=== PATIENT | female | born 1965 | race Caucasian/White ===

== ENCOUNTER 2016-03-11 11:18 | Emergency (ER) | payer SELFPAY ==
[2016-03-11] MEDS ORDERED: ASPIRIN 81 MG TABLET, CHEWABLE PO ONE (11:28)
--- NOTE | 2016-03-11 11:28 | ER Document Report ---
ED Medical Screen (RME) - General Stated Complaint: TIGHT CHEST,SHAKY,LIPS TINGLING Time seen by provider: 11:26 Mode of Arrival: Ambulatory Information source: Patient Notes: 50-year-old female presents to ED with heaviness to the chest radiating to the neck. States she was not feeling good at 9:00 this morning the heaviness started about 10:15 this morning. Patient has a history of high blood pressure and cholesterol. States she has a history of asthma bronchitis and pneumonia I have greeted and performed a rapid initial assessment of this patient. A comprehensive ED assessment and evaluation of the patient, analysis of test results and completion of medical decision making process will be conducted by an additional ED providers. TRAVEL OUTSIDE OF THE [place] IN LAST 30 DAYS: No - Related Data Allergies/Adverse Reactions: No Known Allergies Allergy (Verified 03/11/16 11:26) Past Medical History - Past Medical History Cardiac Medical History: Reports: Hx Hypercholesterolemia, Hx Hypertension Pulmonary Medical History: Reports: Hx Bronchitis Denies: Hx Tuberculosis Neurological Medical History: Reports: Hx Migraine - Gets migraine headache about every other week. Psychiatric Medical History: Reports: Hx Anxiety Past Surgical History: Reports: Hx Hysterectomy - partial hysterectomy, Hx Tonsillectomy - Immunizations Immunizations up to date: No Hx Diphtheria, Pertussis, Tetanus Vaccination: Yes
[2016-03-11 12:03] LABS: ABSOLUTE BASOPHILS # (AUTO) 0.1 10^3/uL (0.0-0.2); ABSOLUTE EOSINOPHILS # (AUTO) 0.1 10^3/uL (0.0-0.6); ABSOLUTE LYMPHOCYTES (AUTO) 2.1 10^3/uL (0.5-4.7); ABSOLUTE MONOCYTES (AUTO) 0.5 10^3/uL (0.1-1.4); BASOPHILS % (AUTO) 0.6 % (0-2); EOSINOPHILS % (AUTO) 1.1 % (0-6); HEMATOCRIT 40.3 % (36.0-47.0); HEMOGLOBIN 13.1 g/dL (12.0-15.5); LYMPHOCYTES % (AUTO) 23.9 % (13-45); MEAN CORPUSCULAR HGB CONC 32.5 g/dL (32.0-36.0); MEAN CORPUSCULAR VOLUME 102 fl (80-97); MONOCYTES % (AUTO) 5.7 % (3-13); RED BLOOD COUNT 3.97 10^6/uL (3.72-5.28); RED CELL DISTRIBUTION WIDTH 14.6 % (11.5-14.0); SEGMENTED NEUTROPHILS % (AUTO) 68.7 % (42-78); WHITE BLOOD COUNT 8.7 10^3/uL (4.0-10.5)
[2016-03-11 12:11] LABS: PROTHROMBIN TIME 11.2 SEC (11.4-15.4)
[2016-03-11 12:12] LABS: PARTIAL THROMBOPLASTIN TIME 28.6 SEC (23.5-35.8)
[2016-03-11 12:20] LABS: ALANINE AMINOTRANSFERASE 30 U/L (9-52); ALBUMIN 4.1 g/dL (3.5-5.0); ALKALINE PHOSPHATASE 70 U/L (38-126); ANION GAP 11 (5-19); ASPARTATE AMINO TRANSFERASE 27 U/L (14-36); BILIRUBIN,TOTAL 0.5 mg/dL (0.2-1.3); BLOOD UREA NITROGEN 14 mg/dL (7-20); CALCIUM 10.1 mg/dL (8.4-10.2); CARBON DIOXIDE 24 mmol/L (22-30); CHLORIDE 105 mmol/L (98-107); CREATINE KINASE 52 U/L (30-135); CREATININE RESULT 0.83 mg/dL (0.52-1.25); GLUCOSE 85 mg/dL (75-110); MAGNESIUM 1.9 mg/dL (1.6-2.3); POTASSIUM 5.2 mmol/L (3.6-5.0); SODIUM 140.4 mmol/L (137-145); TOTAL PROTEIN 7.4 g/dL (6.3-8.2)
[2016-03-11 12:45] LABS: CREATINE KINASE MB < 0.22 ng/mL (<4.55); TROPONIN I < 0.012 ng/mL
--- NOTE | 2016-03-11 12:47 | EKG REPORT ---
SEVERITY:- BORDERLINE ECG - SINUS RHYTHM BORDERLINE T ABNORMALITIES, ANT-LAT LEADS : Confirmed by: Jackeline Alfredo MD 11-Mar-2016 12:46:41
[2016-03-11] MEDS ORDERED: ONDANSETRON ODT 4 MG TAB (6 TAB/DSPK) PO PRN (14:52)
[2016-03-11] MEDS ORDERED: TRAMADOL HCL 50 MG TABLET PO ONE (14:52)
--- NOTE | 2016-03-11 15:22 | ER Document Report ---
ED General - General Time seen by provider: 14:45 Mode of Arrival: Ambulatory Information source: Patient TRAVEL OUTSIDE OF THE [place] IN LAST 30 DAYS: No - HPI Onset: Other - see HPI Associated symptoms: Nausea, Vomiting <SARAH CHUNG - Last Filed: 03/11/16 16:59> - General Mode of Arrival: Ambulatory TRAVEL OUTSIDE OF THE [place] IN LAST 30 DAYS: No <CESARMARKUS UNA - Last Filed: 03/11/16 21:38> - General Chief Complaint: Chest Tightness Stated Complaint: TIGHT CHEST,SHAKY,LIPS TINGLING Notes: Patient is a 50 year old female presenting to the emergency department complaining of hypertension, dizziness, and lack of appetite. Patient states that she has been out of her blood pressure medication for a few days since her got a new job with new insurance. Patient states she takes lisinopril. Patient states that she also has not been taking her Neurontin and that the last time she took it she vomited. Patient states that she has not been eating as much because she was feeling sick. Patient states she was not eating protein. Patient states that she also feels "out of it." Patient states she has a pinched when she swallows on her left side. Patient has no known allergies. (SARAH CHUNG) - Related Data Allergies/Adverse Reactions: No Known Allergies Allergy (Verified 03/11/16 11:26) Past Medical History - General Information source: Patient - Social History Smoking Status: Current Every Day Smoker Chew tobacco use (# tins/day): No Frequency of alcohol use: Occasional Drug Abuse: None Family History: Reviewed & Not Pertinent, CAD Patient has suicidal ideation: No Patient has homicidal ideation: No - Past Medical History Cardiac Medical History: Reports: Hx Hypercholesterolemia, Hx Hypertension - lisinopril Pulmonary Medical History: Reports: Hx Bronchitis Neurological Medical History: Reports: Hx Migraine Psychiatric Medical History: Reports: Hx Anxiety Past Surgical History: Reports: Hx Hysterectomy, Hx Tonsillectomy - Immunizations Immunizations up to date: No Hx Diphtheria, Pertussis, Tetanus Vaccination: Yes <SARAH CHUNG - Last Filed: 03/11/16 16:59> - General Information source: Patient - Social History Smoking Status: Current Every Day Smoker Chew tobacco use (# tins/day): No Frequency of alcohol use: Occasional Drug Abuse: None Family History: CAD Patient has suicidal ideation: No Patient has homicidal ideation: No - Past Medical History Cardiac Medical History: Reports: Hx Hypercholesterolemia, Hx Hypertension Pulmonary Medical History: Reports: Hx Bronchitis Denies: Hx Tuberculosis Neurological Medical History: Reports: Hx Migraine - Gets migraine headache about every other week. Renal/ Medical History: Denies: Hx Peritoneal Dialysis Psychiatric Medical History: Reports: Hx Anxiety Past Surgical History: Reports: Hx Hysterectomy, Hx Tonsillectomy - Immunizations Immunizations up to date: No Hx Diphtheria, Pertussis, Tetanus Vaccination: Yes Hx Pneumococcal Vaccination: 09/06/13 <MARKUS GUERRERO - Last Filed: 03/11/16 21:38> Review of Systems - Review of Systems Constitutional: See HPI, Malaise EENT: No symptoms reported Cardiovascular: See HPI, Dizziness Respiratory: No symptoms reported Gastrointestinal: See HPI, Nausea, Vomiting Genitourinary: No symptoms reported Female Genitourinary: No symptoms reported Musculoskeletal: No symptoms reported Skin: No symptoms reported Hematologic/Lymphatic: No symptoms reported Neurological/Psychological: No symptoms reported -: Yes All other systems reviewed and negative <SARAH CHUNG - Last Filed: 03/11/16 16:59> Physical Exam - Vital signs Interpretation: Normal - General General appearance: Appears well, Alert - HEENT Head: Normocephalic, Atraumatic Eyes: Normal Pupils: PERRL - Respiratory Respiratory status: No respiratory distress Chest status: Nontender Breath sounds: Normal Chest palpation: Normal - Cardiovascular Rhythm: Regular Heart sounds: Normal auscultation Murmur: No - Abdominal Inspection: Normal Distension: No distension Bowel sounds: Normal Tenderness: Nontender Organomegaly: No organomegaly - Back Back: Normal, Nontender - Extremities General upper extremity: Normal inspection, Nontender, Normal color, Normal ROM , Normal temperature General lower extremity: Normal inspection, Nontender, Normal color, Normal ROM , Normal temperature, Normal weight bearing. No: Segundo's sign - Neurological Neuro grossly intact: Yes Cognition: Normal Orientation: AAOx4 Bulger Coma Scale Eye Opening: Spontaneous Arsenio Coma Scale Verbal: Oriented Arsenio Coma Scale Motor: Obeys Commands Arsenio Coma Scale Total: 15 Speech: Normal Motor strength normal: LUE, RUE, LLE, RLE Sensory: Normal - Psychological Associated symptoms: Normal affect, Normal mood - Skin Skin Temperature: Warm Skin Moisture: Dry Skin Color: Normal <MARKUS GUERRERO - Last Filed: 03/11/16 21:38> - Vital signs Vitals: Pulse Ox 97 03/11/16 13:05 (SARAH CHUNG) (MARKUS GUERRERO) Course - Laboratory Result Diagrams: 03/11/16 11:42 03/11/16 11:42 <SARAH CHUNG - Last Filed: 03/11/16 16:59> - Laboratory Result Diagrams: 03/11/16 11:42 03/11/16 11:42 <MARKUS GUERRERO - Last Filed: 03/11/16 21:38> - Re-evaluation Re-evalutation: 03/11/16 Patient is a 50-year-old female who comes in complaining of palpitations on and off. Patient is also concerned about her blood pressure being high and has not had a refill of her lisinopril hydrochlorothiazide. No acute findings on blood work except for a low TSH. EKG with and chest x-ray within normal limits. Patient will have her medications refilled. She is instructed to follow-up with her doctor regarding her low TSH. Patient understands and agrees with this plan. No chest pain. Troponin negative. No acute changes on EKG. Stable for discharge home. Return if any worsening or concerning symptoms. ( MARKUS GUERRERO) - Vital Signs Vital signs: Temp Pulse Resp BP Pulse Ox 97.6 F 84 18 153/96 H 100 03/11/16 15:32 03/11/16 15:32 03/11/16 15:32 03/11/16 15:32 03/11/16 15:32 (SARAH CHUNG) (MARKUS GUERRERO) - Laboratory Laboratory results interpreted by md: 03/11/16 03/11/16 03/11/16 11:42 11:42 11:42 MCV 102 H RDW 14.6 H PT 11.2 L Potassium 5.2 H TSH 03/11/16 11:42 MCV RDW PT Potassium TSH 0.25 L (SARAH CHUNG) (MARKUS GUERRERO) Discharge <SARAH CHUNG - Last Filed: 03/11/16 16:59> <MARKUS GUERRERO - Last Filed: 03/11/16 21:38> - Discharge Clinical Impression: Palpitations, Hyperthyroidism, Toothache Hypertension Qualifiers: Hypertension type: essential hypertension Qualified Code(s): I10 - Essential ( primary) hypertension Condition: Stable Disposition: HOME, SELF-CARE Instructions: Hyperthyroidism ([facility]), Palpitations (Irregular or Rapid Heartrate ) ([facility]), High Blood Pressure ([facility]) Additional Instructions: Please follow-up with your doctor regarding your thyroid. Prescriptions: Ondansetron [Zofran Odt 4 mg Tablet] 1 tab PO Q4HP PRN #10 tab.rapdis PRN Reason: Lisinopril/Hydrochlorothiazide [Lisinopril-Hctz 20-12.5 mg Tab] 1 each PO DAILY #30 tablet Metoclopramide HCl [Reglan 10 mg Tablet] 1 - 2 tab PO ASDIR PRN #25 tablet PRN Reason: Tramadol HCl 50 mg PO BIDP PRN #20 tablet PRN Reason: Scribe Attestation: 03/11/16 21:38 I personally performed the services described in the documentation, reviewed and edited the documentation which was dictated to the scribe in my presence, and it accurately records my words and actions. (MARKUS GUERRERO) Scribe Documentation - Scribe Written by Antoni:: Sarah Chung 03/11/16 16:00 acting as scribe for :: Cesar <SARAH CHUNG - Last Filed: 03/11/16 16:59>
[2016-03-11 15:43] VITALS: BP 153/96
== END 2016-03-11 15:32 | disposition home or self-care (01) ==
LOC: ER 11:18
DX: R00.2 Palpitations (principal); E05.90 Thyrotoxicosis, unspecified without thyrotoxic crisis or storm; R53.81 Other malaise; K08.9 Disorder of teeth and supporting structures, unspecified; R11.2 Nausea with vomiting, unspecified; R42 Dizziness and giddiness; F17.200 Nicotine dependence, unspecified, uncomplicated; I10 Essential (primary) hypertension; E78.00 Pure hypercholesterolemia, unspecified; Z90.710 Acquired absence of both cervix and uterus
CPT/HCPCS: 36415; 71020; 80053; 82550; 82553; 83735; 84443; 84484; 85025; 85610; 85730; 93005; 93010; 99284

== ENCOUNTER → 2019-03-29 | Outpatient (CLI) | payer BC ==
--- NOTE | 2019-03-29 14:30 | WOMENS IMAGING REPORT ---
EXAM DESCRIPTION: BILAT DIAGNOSTIC MAMMO W/CAD COMPLETED DATE/TIME: 03/29/2019 11:25 am REASON FOR STUDY: MASS OF LT AXILLA Z12.31 ENCNTR SCREEN MAMMOGRAM FOR MALIGNANT NEOPLASM OF ANA MARÍA COMPARISON: 2013. EXAM PARAMETERS: Standard craniocaudal and mediolateral oblique views of each breast recorded using digital acquisition. Left true lateral view. Read with the assistance of CAD: .[employer] Manager Version 9.2 LIMITATIONS: None. FINDINGS: RIGHT BREAST MASSES: No suspicious masses. CALCIFICATIONS: No new or suspicious calcifications. ARCHITECTURAL DISTORTION: None. ASYMMETRY: None noted. OTHER: No other significant findings. LEFT BREAST MASSES: No suspicious masses. CALCIFICATIONS: No new or suspicious calcifications. ARCHITECTURAL DISTORTION: None. ASYMMETRY: None noted. OTHER: No other significant finding. Area of interest reportedly is in the left axilla. This area may lie out of the field of view on sarah mograms. IMPRESSION: Negative diagnostic mammography. Stable appearance of the mammograms. BREAST DENSITY: c. The breasts are heterogeneously dense, which may obscure small masses. BIRAD: ASSESSMENT: 1 Negative. RECOMMENDATION: RECOMMENDED FOLLOW UP: Clinical followup of axillary lesion. Please also correlate with axillary ultrasound dictated separately. Yearly screening mammography is otherwise appropriate. SPECIFIC INTERVENTION/IMAGING/CONSULTATION RECOMMENDED:No additional intervention/ imaging/consultati on needed at this time. COMMUNICATION:No significant abnormalities to discuss with the patient today. COMMENT: The patient has been notified of the results by letter per MQSA requirements. Additional no tification policies are in place for contacting patient with suspicious or incomplete findings. Quality ID #[id number]: The [employer] recommends an annual screening mammogram for women aged 40 years or over. This facility utilizes a reminder system to ensure that all patients receive reminder letters, and/or direct phone calls for appointments. This includes reminders for routine scr eening mammograms, diagnostic mammograms, or other Breast Imaging Interventions when appropriate. Th is patient will be placed in the appropriate reminder system. TECHNICAL DOCUMENTATION: FINDING NUMBER: (1) ASSESSMENT: (1) JOB ID: [id number] 2010 [employer]- All Rights Reserved Reading location - IP/workstation name: [email or web address]
--- NOTE | 2019-03-29 14:32 | WOMENS IMAGING REPORT ---
EXAM DESCRIPTION: U/S EXTREMITY NONVASCULAR COMP COMPLETED DATE/TIME: 03/29/2019 11:17 am REASON FOR STUDY: MASS OF LT AXILLA Z12.31 ENCNTR SCREEN MAMMOGRAM FOR MALIGNANT NEOPLASM OF ANA MARÍA COMPARISON: None. TECHNIQUE: Dynamic and static grayscale images acquired of the localized site of clinical concern an d recorded on PACS. Additional selected color Doppler and spectral images recorded. SITE OF CONCERN: Left axilla LIMITATIONS: None. FINDINGS: SKIN AND SUBCUTANEOUS TISSUES: No masses. No fluid collections. No edema. No foreign dano s. DEEP SOFT TISSUES/MUSCLES: No masses. No fluid collections. No edema. VASCULAR: No increased or decreased vascularity. No occlusions. OTHER: No other significant finding. IMPRESSION: No soft tissue mass or other abnormality in the region of the left axilla. Clinical fol lowup necessary. TECHNICAL DOCUMENTATION: JOB ID: [id number] 2010 [employer]- All Rights Reserved Reading location - IP/workstation name: [email or web address]
== END ==
LOC: WI 14:25
PROVIDERS: ATTEND Nurse Practitioner Family
DX: R22.32 Localized swelling, mass and lump, left upper limb (principal)
CPT/HCPCS: 76881; 77066